=== PATIENT | male | born 1965 | race American Indian/Alaskan Native ===

== ENCOUNTER 2016-11-27 05:14 | Emergency (ER) | payer BC ==
[2016-11-27] MEDS: TYLENOL PO ONE (16:32)
--- NOTE | 2016-11-27 17:25 | Emergency Department Report ---
HPI - General Chief Complaint: Fall Time Seen by Provider: 11/27/16 16:52 - HPI HPI: [address] [id number] The patient is a 51-year-old male presenting with a chief complaint of cough and fever. The patient states his symptoms began last night with a cough that was productive of white sputum and body aches. Patient noted a subjective fever. There were no sick contacts or history of rhinorrhea. This morning the patient again stated he was not "feeling well." The patient states he went to the bathroom and began to feel lightheaded. The patient nausea but denies vomiting. Patient admits to diffuse headaches, body aches and chills. Patient now complains of feeling dizzy aches Location: [see above] Duration: Since last night Quality: Aches, chills, dizziness Severity: Moderate Modifying factors: [see above] Context: [see above] Mode of transportation: [not driving] ED Past Medical Hx - Past Medical History Previous Medical History?: Yes Hx Asthma: Yes Additional medical history: sleep apnea - Surgical History Past Surgical History?: No - Family History Family history: no significant - Social History Smoking Status: Never Smoker Substance Use Type: None - Medications Home Medications: Home Medications Medication Instructions Recorded Confirmed Last Taken Type ALBUTEROL Inhaler [Proair] 2 puff IH QID PRN #1 inhalation 11/27/16 Unknown Rx Benzonatate [Tessalon Perles] 100 mg PO Q8HR #30 capsule 11/27/16 Unknown Rx Oseltamivir [Tamiflu] 75 mg PO BID #10 cap 11/27/16 Unknown Rx Promethazine /Codeine 5 ml PO Q6H PRN #100 ml 11/27/16 Unknown Rx [Phenergan/Codeine 6.25-10 mg/5 ml] ED Review of Systems ROS: Stated complaint: FALL Other details as noted in HPI Comment: All other systems reviewed and negative Constitutional: fever, malaise Eyes: denies: eye pain, eye discharge, vision change ENT: denies: ear pain, throat pain Respiratory: cough Cardiovascular: denies: chest pain, palpitations Endocrine: no symptoms reported Gastrointestinal: nausea. denies: abdominal pain, vomiting, diarrhea Genitourinary: denies: urgency, dysuria Musculoskeletal: denies: back pain, joint swelling, arthralgia Skin: denies: rash, lesions Neurological: denies: headache, weakness, paresthesias Psychiatric: denies: anxiety, depression Hematological/Lymphatic: denies: easy bleeding, easy bruising Physical Exam - Physical Exam Vital Signs: Vital Signs 11/27/16 11/27/16 11/27/16 05:21 12:33 12:34 Temperature 99.9 F H 99.6 F Pulse Rate 96 H 95 H Respiratory 18 16 16 Rate Blood Pressure 139/74 Blood Pressure 135/73 [Right] O2 Sat by Pulse 99 100 100 Oximetry 11/27/16 16:18 Temperature 103.1 F H Pulse Rate Respiratory Rate Blood Pressure Blood Pressure [Right] O2 Sat by Pulse Oximetry Physical Exam: GENERAL: The patient is well-developed well-nourished male sitting on stretcher with facemask in place not appear to be in acute distress. [] HEENT: Normocephalic. Atraumatic. Extraocular motions are intact. Patient has moist mucous membranes. NECK: Supple. No meningitic signs are noted. Trachea midline CHEST/LUNGS: Clear to auscultation. There is no respiratory distress noted. HEART/CARDIOVASCULAR: Regular. There is no tachycardia. There is no gallop rub or murmur. ABDOMEN: Abdomen is soft, nontender. Patient has normal bowel sounds. There is no abdominal distention. SKIN: There is no rash. There is no edema. There is no diaphoresis. NEURO: The patient is awake, alert, and oriented. The patient is cooperative. The patient has no focal neurologic deficits. The patient has normal speech. Cranial nerves II through XII grossly intact, no drift MUSCULOSKELETAL: There is no evidence of acute injury. ED Course Vital Signs 11/27/16 11/27/16 11/27/16 05:21 12:33 12:34 Temperature 99.9 F H 99.6 F Pulse Rate 96 H 95 H Respiratory 18 16 16 Rate Blood Pressure 139/74 Blood Pressure 135/73 [Right] O2 Sat by Pulse 99 100 100 Oximetry 11/27/16 16:18 Temperature 103.1 F H Pulse Rate Respiratory Rate Blood Pressure Blood Pressure [Right] O2 Sat by Pulse Oximetry ED Medical Decision Making - Lab Data Influenza A- positive - Radiology Data Radiology results: image reviewed (chest x-ray) interpreted by me: Chest x-ray-no focal infiltrates, no pneumothorax - Differential Diagnosis influenza, pneumonia Critical care attestation.: If time is entered above; I have spent that time in minutes in the direct care of this critically ill patient, excluding procedure time. ED Disposition Clinical Impression: Influenza A, Fever, Cough Disposition: DISCHARGED TO HOME OR SELFCARE Is pt being admited?: No Does the pt Need Aspirin: No Condition: Stable Instructions: Influenza (ED) Additional Instructions: Return to the emergency department immediately should you develop worsening symptoms, fever, inability to tolerate food or liquid or any other concerns. Prescriptions: ALBUTEROL Inhaler [Proair] 2 puff IH QID PRN #1 inhalation PRN Reason: Shortness Of Breath Benzonatate [Tessalon Perles] 100 mg PO Q8HR #30 capsule Oseltamivir [Tamiflu] 75 mg PO BID #10 cap Promethazine /Codeine [Phenergan/Codeine 6.25-10 mg/5 ml] 5 ml PO Q6H PRN #100 ml PRN Reason: cough Referrals: CHRISTIAN MALCOLM MD [Primary Care Provider] - 3-5 Days Time of Disposition: 17:39
[2016-11-27 17:51] VITALS: BP 140/70
--- NOTE | 2016-11-28 08:17 | XRay Report ---
CHEST TWO VIEWS: 11/27/16 05:14:00 CLINICAL: Fever and flulike symptoms. Productive cough and shortness of breath. COMPARISON: None FINDINGS: Normal heart and pulmonary vasculature. The lungs are normally expanded and clear.The bones and soft tissues are unremarkable. IMPRESSION: Normal chest.
== END 2016-11-27 17:51 | disposition home or self-care (01) ==
LOC: ED 05:14
DX: J09.X2 Influenza due to identified novel influenza A virus with other respiratory manifestations (principal); J45.909 Unspecified asthma, uncomplicated
CPT/HCPCS: 71020; 87400